=== PATIENT | female | born 1985 | race Caucasian/White ===

== ENCOUNTER → 2016-10-05 13:16 | Emergency (ER) | payer MEDICAID | END | disposition left against medical advice (07) | LOC: D.ER 13:16 | DX: Z02.9 Encounter for administrative examinations, unspecified (principal) ==

== ENCOUNTER 2017-08-30 19:45 | Emergency (ER) | payer MEDICARE ==
[2017-08-30 20:19] LABS: APPEARANCE HAZY (CLEAR); BILIRUBIN NEGATIVE (NEGATIVE); COLOR YELLOW (YELLOW); GLUCOSE NEGATIVE (NEGATIVE); KETONE NEGATIVE (NEGATIVE); NITRITE NEGATIVE (NEGATIVE); PROTEIN NEGATIVE (NEGATIVE); SPECIFIC GRAVITY 1.015 (1.005-1.020); UROBILINOGEN NORMAL (NORMAL)
[2017-08-30 20:22] LABS: BACTERIA MODERATE /hpf (NONE SEEN); EPITHELIAL CELLS 0-5 /hpf (0-5); RED CELLS - URINE 0-5 /hpf (0-5)
[2017-08-30 20:23] LABS: AMORPHOUS SEDIMENT >1+ /lpf (NONE SEEN)
[2017-08-30 20:34] LABS: BASOPHILS 0.2 % (0-2); EOSINOPHILS 1.6 % (0-7); IMMATURE GRANULOCYTES 0.9 % (0-5); LYMPHOCYTES 37.5 % (15-50); MCH 29.8 pg (26.0-34.0); MCHC 33.3 g/dL (31.0-37.0); MCV 89.4 fL (80.0-100.0); MEAN PLATELET VOLUME 11.3 fL (7.4-10.4); MONOCYTES 6.9 % (2-11); NEUTROPHILS 52.9 % (40-80); RDW 12.2 % (11.5-14.5); WBC 8.9 10x3/uL (4.8-10.8)
[2017-08-30 20:35] LABS: PLATELET COUNT 161 10x3/uL (130-400)
[2017-08-30 20:55] LABS: HCG SERUM NEGATIVE (NEGATIVE)
[2017-08-30 21:00] LABS: ALBUMIN 4.2 g/dL (3.4-5.0); ALKALINE PHOSPHATASE 69 U/L (46-116); ALT (SGPT) 22 U/L (10-68); AMYLASE - SERUM 21 U/L (25-115); BILIRUBIN - TOTAL 0.15 mg/dL (0.2-1.3); CALC OSMOLALITY 280 mosm/kg (275-300); CARBON DIOXIDE 32.3 mmol/L (21.0-32.0); CHLORIDE - SERUM 102 mmol/L (98-107); CREATININE - SERUM 0.8 mg/dL (0.6-1.3); GLUCOSE 89 mg/dL (74-106); LIPASE 135 U/L (73-393); POTASSIUM - SERUM 3.3 mmol/L (3.5-5.1); PROTEIN - SERUM 8.2 g/dL (6.4-8.2); SODIUM 142 mmol/L (136-145); UREA NITROGEN 10 mg/dL (7-18); eGFR NON AFRICAN AMERICAN 87 mL/min (90-120)
[2017-10-21] MEDS ORDERED: VALIUM5 MG PO (09:43)
[2017-10-21] MEDS ORDERED: ULTRAM50 MG PO (09:44)
[2017-10-21] MEDS ORDERED: BACTRIM 400-801 TAB PO (09:45)
[2017-10-21] MEDS ORDERED: INDERAL10 MG PO (09:46)
[2017-10-21] MEDS ORDERED: LAMICTAL150 MG PO (09:46)
[2017-10-21] MEDS ORDERED: LINZESS290 MCG PO (09:47)
[2017-10-21] MEDS ORDERED: HCTZ25 MG PO (09:47)
[2017-10-21] MEDS ORDERED: TRANXENE T-TAB7.5 MG PO (09:49)
[2017-10-27 08:55] VITALS: BMI 33.8
== END 2017-08-30 22:46 | disposition home or self-care (01) ==
LOC: D.ER 19:45
PROVIDERS: Emergency Medicine; Physician Assistant
DX: R10.13 Epigastric pain (principal); R11.2 Nausea with vomiting, unspecified; Z98.890 Other specified postprocedural states; E87.6 Hypokalemia; K59.00 Constipation, unspecified; Z95.0 Presence of cardiac pacemaker; J44.9 Chronic obstructive pulmonary disease, unspecified

== ENCOUNTER 2017-09-10 11:03 | Emergency (ER) | payer MEDICARE ==
[2017-10-21] MEDS ORDERED: VALIUM5 MG PO (09:43)
[2017-10-21] MEDS ORDERED: ULTRAM50 MG PO (09:44)
[2017-10-21] MEDS ORDERED: BACTRIM 400-801 TAB PO (09:45)
[2017-10-21] MEDS ORDERED: LAMICTAL150 MG PO (09:46)
[2017-10-21] MEDS ORDERED: INDERAL10 MG PO (09:46)
[2017-10-21] MEDS ORDERED: LINZESS290 MCG PO (09:47)
[2017-10-21] MEDS ORDERED: HCTZ25 MG PO (09:47)
[2017-10-21] MEDS ORDERED: TRANXENE T-TAB7.5 MG PO (09:49)
[2017-10-27 08:55] VITALS: BMI 33.8
== END 2017-09-10 12:58 | disposition home or self-care (01) ==
LOC: D.ER 11:03
DX: L53.8 Other specified erythematous conditions (principal); Z95.0 Presence of cardiac pacemaker

== ENCOUNTER 2017-10-12 10:24 | Emergency (ER) | payer MEDICARE ==
[2017-10-12 11:30] LABS: BASOPHILS 0.3 % (0-2); EOSINOPHILS 1.1 % (0-7); HEMATOCRIT 37.4 % (36.0-48.0); HEMOGLOBIN 12.7 g/dL (12-16); IMMATURE GRANULOCYTES 0.2 % (0-5); LYMPHOCYTES 42.6 % (15-50); MCH 29.8 pg (26.0-34.0); MCV 87.8 fL (80.0-100.0); MEAN PLATELET VOLUME 9.4 fL (7.4-10.4); MONOCYTES 6.4 % (2-11); NEUTROPHILS 49.4 % (40-80); RBC 4.26 10x6/uL (4.00-5.40); RDW 12.7 % (11.5-14.5); WBC 6.2 10x3/uL (4.8-10.8)
[2017-10-12 11:31] LABS: PLATELET COUNT 215 10x3/uL (130-400)
[2017-10-12 11:38] LABS: APPEARANCE CLEAR (CLEAR); COLOR YELLOW (YELLOW); SPECIFIC GRAVITY 1.005 (1.005-1.020)
[2017-10-12 11:39] LABS: BILIRUBIN NEGATIVE (NEGATIVE); GLUCOSE NEGATIVE (NEGATIVE); KETONE NEGATIVE (NEGATIVE); NITRITE NEGATIVE (NEGATIVE); PROTEIN NEGATIVE (NEGATIVE); UROBILINOGEN NORMAL (NORMAL)
[2017-10-12 11:41] LABS: BACTERIA FEW /hpf (NONE SEEN); EPITHELIAL CELLS 0-5 /hpf (0-5); RED CELLS - URINE 0-5 /hpf (0-5); WHITE CELLS - URINE 0-5 /hpf (0-5)
[2017-10-12 11:53] LABS: ALBUMIN 3.9 g/dL (3.4-5.0); ALKALINE PHOSPHATASE 57 U/L (46-116); ALT (SGPT) 20 U/L (10-68); CALC OSMOLALITY 275 mosm/kg (275-300); CALCIUM 9.9 mg/dL (8.5-10.1); CARBON DIOXIDE 26.6 mmol/L (21.0-32.0); CHLORIDE - SERUM 104 mmol/L (98-107); CREATININE - SERUM 0.8 mg/dL (0.6-1.3); GLUCOSE 101 mg/dL (74-106); POTASSIUM - SERUM 3.7 mmol/L (3.5-5.1); SODIUM 138 mmol/L (136-145); UREA NITROGEN 13 mg/dL (7-18); eGFR NON AFRICAN AMERICAN 87 mL/min (90-120)
[2017-10-21] MEDS ORDERED: VALIUM5 MG PO (09:43)
[2017-10-21] MEDS ORDERED: ULTRAM50 MG PO (09:44)
[2017-10-21] MEDS ORDERED: BACTRIM 400-801 TAB PO (09:45)
[2017-10-21] MEDS ORDERED: INDERAL10 MG PO (09:46)
[2017-10-21] MEDS ORDERED: LAMICTAL150 MG PO (09:46)
[2017-10-21] MEDS ORDERED: HCTZ25 MG PO (09:47)
[2017-10-21] MEDS ORDERED: LINZESS290 MCG PO (09:47)
[2017-10-21] MEDS ORDERED: TRANXENE T-TAB7.5 MG PO (09:49)
[2017-10-27 08:55] VITALS: BMI 33.8
== END 2017-10-12 13:00 | disposition home or self-care (01) ==
LOC: D.ER 10:24
PROVIDERS: Family Medicine
DX: N39.0 Urinary tract infection, site not specified (principal); Z95.0 Presence of cardiac pacemaker

== ENCOUNTER 2017-10-22 08:05 | Day surgery (SDC) | payer MEDICARE ==
[2017-10-21 10:40] LABS: HEMATOCRIT 38.2 % (36.0-48.0); HEMOGLOBIN 12.9 g/dL (12-16); MCH 29.9 pg (26.0-34.0); MCHC 33.8 g/dL (31.0-37.0); MCV 88.4 fL (80.0-100.0); MEAN PLATELET VOLUME 9.4 fL (7.4-10.4); RBC 4.32 10x6/uL (4.00-5.40); RDW 12.4 % (11.5-14.5); WBC 6.4 10x3/uL (4.8-10.8)
[2017-10-21 11:02] LABS: CALC OSMOLALITY 275 mosm/kg (275-300); CARBON DIOXIDE 30.5 mmol/L (21.0-32.0); CHLORIDE - SERUM 104 mmol/L (98-107); CREATININE - SERUM 0.8 mg/dL (0.6-1.3); GLUCOSE 97 mg/dL (74-106); POTASSIUM - SERUM 3.5 mmol/L (3.5-5.1); SODIUM 139 mmol/L (136-145); UREA NITROGEN 8 mg/dL (7-18); eGFR NON AFRICAN AMERICAN 87 mL/min (90-120)
[~2017-10-22] VITALS: Ht 167.6 cm; Wt 88.5 kg
--- NOTE | ~2017-10-22 | OP ---
PATIENT NAME: MIRYAM TREVINO MEDICAL RECORD: [id number] :81 LOCATION:D.OPS ADMISSION DATE: SURGEON: ARIC PERKINS MD DATE OF OPERATION: 10/22/2017 PREOPERATIVE DIAGNOSIS: Esophageal nodule near the EG junction of uncertain etiology. POSTOPERATIVE DIAGNOSIS: Esophageal nodule near the EG junction of uncertain etiology. PROCEDURE: Esophagogastroduodenoscopy with endoscopic mucosal resection of a submucosal lesion at 37 cm. SURGEON: Aric Perkins MD DOCTOR OF NURSING PRACTICE: None. BLOOD LOSS: Minimal. ANESTHESIA: General. COMPLICATIONS: None. The risks, possible complications and alternatives to procedure were explained to the patient. She elects to proceed. The discussion specifically included, but was not limited to, bleeding requiring emergency reoperation, infection, intestinal or other GI tract injury. DESCRIPTION OF PROCEDURE: The patient was conveyed to the operating room electively on 10/22/2017. General anesthesia was induced by the anesthesia staff. A bite block was inserted. A gastroscope was inserted into the mouth. It was advanced easily into the hypopharynx. The esophagus was easily intubated as were the stomach and duodenum. Upon withdrawal, retroflexed and angulus views were obtained. I then withdrew into the distal esophagus. I identified the lesion. I advanced a sclerotherapy needle. Underneath the lesion, I injected an epinephrine solution. This was to get a lift of the lesion away from the esophageal wall. I then removed the sclerotherapy needle as well as the gastroscope. The gastroscope was loaded with a banding device. I advanced the gastroscope. I identified the lesion. I sucked it up into the banding reservoir. I deployed 1 band. It appeared to have fit nicely around the base of this lesion. The gastroscope was removed. The banding device was removed as well. I re-advanced the gastroscope. I advanced an endoscopic snare. I then placed a snare around the base of the band. Utilizing the coag setting and then the cut setting, I was able to transect the mass at its base. The snare was removed. An endoscopic retrieval net was advanced and I was able to identify the specimen in the fundus of the stomach and it was removed in its entirety. I then readvanced the gastroscope. I noted no residual mass. There was some bleeding around the biopsy site and this was controlled with the argon plasma education department chair utilizing the esophageal setting in the forced mode. Again, no evidence of full thickness injury to the esophagus. The endoscope was OPERATIVE REPORT [id number] MIRYAM TREVINO then withdrawn under direct vision. I will see the patient in my office in 2-3 weeks. TRANSINT:[id number] Voice Confirmation ID: [id number] DOCUMENT ID: [id number] ARIC PERKINS MD at 1507 CC: VINCENT LEUNG MD and BISHOP GILES [id number] DICTATION DATE: 10/22/17 1156 DRUM DYEING MACHINE OPERATOR: 10/22/[address] [facility] [place] 10/22/17 [facility] [address] [place] [address]
[~2017-10-22 08:05] MED LIST: BACTRIM 400-801 TAB PO; HCTZ25 MG PO; INDERAL10 MG PO; LAMICTAL150 MG PO; LINZESS290 MCG PO; TRANXENE T-TAB7.5 MG PO; ULTRAM50 MG PO; VALIUM5 MG PO
[2017-10-22 08:56] VITALS: BP 118/71; Ht 167.6 cm; Wt 88.5 kg
== END 2017-10-22 15:05 | disposition home or self-care (01) ==
LOC: D.OPS 08:05 → D.PAN 13:00 → D.OPS 15:05
PROVIDERS: Anesthesiology
DX: K22.8 Other specified diseases of esophagus (principal); F41.9 Anxiety disorder, unspecified; J45.909 Unspecified asthma, uncomplicated; I25.2 Old myocardial infarction; Z86.010 Personal history of colon polyps; Z95.0 Presence of cardiac pacemaker; K76.9 Liver disease, unspecified; I10 Essential (primary) hypertension; E78.5 Hyperlipidemia, unspecified; Z01.812 Encounter for preprocedural laboratory examination

== ENCOUNTER 2017-10-24 18:48 | Inpatient (IN) | payer MEDICARE ==
[~2017-10-24] VITALS: Ht 167.6 cm; Wt 89.7 kg
--- NOTE | ~2017-10-24 | CN ---
PATIENT NAME:MIRYAM TREVINO MEDICAL RECORD: [id number] : 81 LOCATION:D.[facility] [place] ADMIT DATE: 10/24/17 ACCOUNT: [id number] CONSULTING PHYSICIAN: TRACY GAITAN MD REFERRING PHYSICIAN: ARIC PERKINS MD DATE OF CONSULTATION: 10/27/2017 HISTORY OF PRESENT ILLNESS: A 32-year-old female with history of cardiac arrhythmia status post permanent pacemaker placement, admitted with a questionable esophageal perforation, chest pain. She has had increasing PVCs during current illness. She was unable to take anything p.o., typically takes up to 5 Inderal every day. We are asked to see her concerning her cardiovascular status. PAST MEDICAL HISTORY: Otherwise includes: 1. History of cardiac arrhythmias. 2. Gastroesophageal reflux disease. MEDICATIONS: Include propranolol. ALLERGIES: PENICILLIN. SOCIAL HISTORY: Nonsmoker, nondrinker. Easily takes care of all ADLs. No set exercise program. REVIEW OF SYSTEMS: The patient reports easy bruising but reports no swollen glands. The patient reports no fever, no night sweats, no significant weight gain, no significant weight loss. No significant exercise tolerance. The patient reports no dry eyes, no irritation, no vision change. Patient reports no difficulty hearing and no ear pain. Patient reports no frequent nose bleeds or nose and sinus problems. Patient reports on arm pain on exertion. No shortness of breath while lying down. No history of heart murmur. Patient reports no cough, no wheezing or coughing up blood. Patient reports no abdominal pain, no vomiting. Normal appetite. No diarrhea and not vomiting blood. No nausea and no constipation. Patient reports no incontinence. No difficulty urinating. No hematuria. No increased frequency. Patient reports no muscle aches. No weakness, no arthralgias, no back pain. No swelling of the extremities. Patient reports no abnormal mole, no jaundice, no rashes. Reports no loss of consciousness. No weakness and no numbness. No seizures, dizziness, or headaches. The patient reports no depression, no sleep disturbance, feeling safe in a relationship and no alcohol abuse. Patient reports on fatigue. Reports no runny nose or sinus pressure. No itching, no hives, and no frequent sneezing. PHYSICAL EXAMINATION: VITAL SIGNS: Blood pressure 110/63, pulse 100 and regular. HEENT: Normocephalic, atraumatic. NECK: No JVD or bruit. HEART: Regular. LUNGS: Coreas clear. ABDOMEN: Soft, nontender. EXTREMITIES: Pulses 2+. There is no edema. IMPRESSION: Increased PVCs, suspect secondary to withdrawal of Inderal, increase catacholmine drive from current illness. We will replace with IV CONSULT REPORT [id number] MIRYAM TREVINO metoprolol. When taking p.o., would simply restart IV Inderal. TRANSINT:[id number] Voice Confirmation ID: [id number] DOCUMENT ID: [id number] TRACY GAITAN MD at 1359 CC: [id number] DICTATION DATE: 10/27/17 1138 OWNER OPERATOR: 10/27/17 1148 [facility] [place] 10/28/17 [id number] [place] [address]
--- NOTE | ~2017-10-24 | EC ---
PATIENT:MIRYAM TREVINO DATE OF SERVICE: 10/24/17 SEX: F MEDICAL RECORD: [id number] DATE OF : 81 LOCATION:D.[facility] [place] AGE OF PATIENT: 32 ADMISSION DATE: 10/24/17 REFERRING PHYSICIAN: INTERPRETING PHYSICIAN: ONEL CROOK MD ECHOCARDIOGRAM REPORT ECHO CHARGES 4 ECHO COMPLETE Date: 10/28 CLINICAL DIAGNOSIS: PVC'S HX OF PACER ECHOCARDIOGRAPHIC MEASUREMENTS (adult normal given) AC root (d.<3.7cm) 3.4 cm LV Septum d (<1.2 cm> 1.0 cm Valve Excursion 1.4 cm LV Septum (systole) 1.3 cm Left Atria (s.<4.0cm> 3.6 cm LVPW d(<1.2cm) 1.3 cm RV (d.<2.3cm) 4.3 cm LVPW (sytole) 1.4 cm LV diastole(<5.6CM) 4.8 cm MV E-F(>70mm/sec) cm LV systole 3.0 cm LVOT Diameter 1.7 cm MV exc.(>10mm) 1.8 cm Est.ejection fraction (50-75%) % DOPPLER: LVIT cm/sec A 50.0 cm/sec E 69.0 cm/sec LA cm/sec RVSP 19 mmHg LVOT 108 cm/sec AOP1/2T m/s Asc. Ao 137 cm/sec RVOT 100 cm/sec RA cm/sec PA 128 cm/sec AV Gradient Peak 7.51 mmHg AV Mean 3.86 mmHg AV Area 1.7 cm MV Gradient Peak 4.67 mmHg MV Mean 1.19 mmHg MV Area cm COMMENTS: Gunnery/Ordnance Officer: 2 CLEM STEELE Nuclear Operations Specialist: Madison Crook TAPE# PACS Pericardial Effusion N DATE OF SERVICE: PROCEDURE: Transthoracic echocardiogram. FINDINGS: 1. Left ventricle is normal size, normal shape, and normal function. Ejection fraction 60%. Inflow characteristics are normal. 2. The left atrium is normal. 3. The aortic valve is normal. 4. The mitral valve is normal. ECHOCARDIOGRAM REPORT [id number] MIRYAM TREVINO 5. The tricuspid valve is normal. 6. The right-sided structures are mildly enlarged. There is a pacer wire artifact seen. 7. The pulmonic valve is normal. CONCLUSIONS: This is a normal echocardiogram for the patient's stated age. TRANSINT:[id number] Voice Confirmation ID: [id number] DOCUMENT ID: [id number] ONEL CROOK MD at 1057 CC: [id number] DICTATION DATE: 10/29/17918 FINANCIAL OPERATIONS CONSULTANT: 10/29/17 1254 [facility] [place] 10/28/17 [facility] [address] [place] [address]
[2017-10-24 20:16] LABS: APPEARANCE CLEAR (CLEAR); COLOR YELLOW (YELLOW)
[2017-10-24 20:17] LABS: BILIRUBIN NEGATIVE (NEGATIVE); GLUCOSE NEGATIVE (NEGATIVE); KETONE NEGATIVE (NEGATIVE); NITRITE NEGATIVE (NEGATIVE); PROTEIN NEGATIVE (NEGATIVE); UROBILINOGEN NORMAL (NORMAL)
[2017-10-24 20:18] LABS: BASOPHILS 0.1 % (0-2); EOSINOPHILS 0.9 % (0-7); HEMOGLOBIN 13.1 g/dL (12-16); IMMATURE GRANULOCYTES 0.1 % (0-5); LYMPHOCYTES 45.4 % (15-50); MCH 29.7 pg (26.0-34.0); MCHC 33.6 g/dL (31.0-37.0); MCV 88.4 fL (80.0-100.0); MEAN PLATELET VOLUME 9.5 fL (7.4-10.4); MONOCYTES 7.1 % (2-11); NEUTROPHILS 46.4 % (40-80); PLATELET COUNT 250 10x3/uL (130-400); RBC 4.41 10x6/uL (4.00-5.40); RDW 12.2 % (11.5-14.5); WBC 8.4 10x3/uL (4.8-10.8)
[2017-10-24 20:29] LABS: HCG SERUM NEGATIVE (NEGATIVE)
[2017-10-24 20:31] LABS: ALKALINE PHOSPHATASE 66 U/L (46-116); ALT (SGPT) 17 U/L (10-68); AMYLASE - SERUM 15 U/L (25-115); CALC OSMOLALITY 280 mosm/kg (275-300); CALCIUM 9.8 mg/dL (8.5-10.1); CHLORIDE - SERUM 102 mmol/L (98-107); CREATININE - SERUM 0.8 mg/dL (0.6-1.3); GLUCOSE 92 mg/dL (74-106); LIPASE 97 U/L (73-393); POTASSIUM - SERUM 3.1 mmol/L (3.5-5.1); PROTEIN - SERUM 8.4 g/dL (6.4-8.2); SODIUM 142 mmol/L (136-145); UREA NITROGEN 8 mg/dL (7-18); eGFR NON AFRICAN AMERICAN 87 mL/min (90-120)
[2017-10-24 20:34] LABS: HELICOBACTER PYLORI IGG NEGATIVE (NEGATIVE)
[2017-10-24 22:23] LABS: INR 0.94 (0.85-1.17); PROTIME 12.2 SECONDS (11.6-15.0)
[2017-10-25] VITALS (22 sets, daily range): BP systolic 86–119; BP diastolic 53–77; BMI 33.8
[2017-10-25 04:46] LABS: BASOPHILS 0.3 % (0-2); EOSINOPHILS 1.3 % (0-7); HEMATOCRIT 32.8 % (36.0-48.0); HEMOGLOBIN 10.9 g/dL (12-16); LYMPHOCYTES 47.3 % (15-50); MCH 29.8 pg (26.0-34.0); MCHC 33.2 g/dL (31.0-37.0); MCV 89.6 fL (80.0-100.0); MEAN PLATELET VOLUME 9.2 fL (7.4-10.4); MONOCYTES 6.4 % (2-11); NEUTROPHILS 44.7 % (40-80); PLATELET COUNT 211 10x3/uL (130-400); RBC 3.66 10x6/uL (4.00-5.40); RDW 12.5 % (11.5-14.5); WBC 6.7 10x3/uL (4.8-10.8)
[2017-10-25 05:08] LABS: CALC OSMOLALITY 278 mosm/kg (275-300); CALCIUM 8.5 mg/dL (8.5-10.1); CHLORIDE - SERUM 106 mmol/L (98-107); CREATININE - SERUM 0.7 mg/dL (0.6-1.3); GLUCOSE 97 mg/dL (74-106); SODIUM 141 mmol/L (136-145); UREA NITROGEN 7 mg/dL (7-18); eGFR NON AFRICAN AMERICAN > 90 mL/min (90-120)
[2017-10-25 05:11] LABS: POTASSIUM - SERUM 4.1 mmol/L (3.5-5.1)
[2017-10-26] VITALS (24 sets, daily range): BP systolic 95–137; BP diastolic 66–87
[2017-10-26 04:09] LABS: BASOPHILS 0.2 % (0-2); EOSINOPHILS 0.5 % (0-7); HEMATOCRIT 36.9 % (36.0-48.0); HEMOGLOBIN 12.1 g/dL (12-16); IMMATURE GRANULOCYTES 0.5 % (0-5); MCHC 32.8 g/dL (31.0-37.0); MCV 91.6 fL (80.0-100.0); MEAN PLATELET VOLUME 9.6 fL (7.4-10.4); MONOCYTES 4.5 % (2-11); NEUTROPHILS 52.3 % (40-80); PLATELET COUNT 189 10x3/uL (130-400); RBC 4.03 10x6/uL (4.00-5.40); RDW 12.5 % (11.5-14.5); WBC 6.5 10x3/uL (4.8-10.8)
[2017-10-26 04:22] LABS: CALC OSMOLALITY 278 mosm/kg (275-300); CALCIUM 8.3 mg/dL (8.5-10.1); CARBON DIOXIDE 28.6 mmol/L (21.0-32.0); CHLORIDE - SERUM 105 mmol/L (98-107); CREATININE - SERUM 0.6 mg/dL (0.6-1.3); GLUCOSE 82 mg/dL (74-106); POTASSIUM - SERUM 4.2 mmol/L (3.5-5.1); SODIUM 142 mmol/L (136-145); UREA NITROGEN 5 mg/dL (7-18); eGFR NON AFRICAN AMERICAN > 90 mL/min (90-120)
[2017-10-27] VITALS (17 sets, daily range): BP systolic 106–123; BP diastolic 63–93; Ht 167.6 cm; Wt 89.7 kg
[2017-10-27 03:26] LABS: BASOPHILS 0.2 % (0-2); EOSINOPHILS 1.3 % (0-7); HEMATOCRIT 32.7 % (36.0-48.0); HEMOGLOBIN 10.7 g/dL (12-16); IMMATURE GRANULOCYTES 0.6 % (0-5); LYMPHOCYTES 38.8 % (15-50); MCH 29.3 pg (26.0-34.0); MCHC 32.7 g/dL (31.0-37.0); MONOCYTES 4.7 % (2-11); NEUTROPHILS 54.4 % (40-80); PLATELET COUNT 173 10x3/uL (130-400); RBC 3.65 10x6/uL (4.00-5.40); RDW 12.1 % (11.5-14.5); WBC 5.4 10x3/uL (4.8-10.8)
[2017-10-27 03:28] LABS: MCV 89.6 fL (80.0-100.0)
[2017-10-27 03:40] LABS: CARBON DIOXIDE 25.5 mmol/L (21.0-32.0); CHLORIDE - SERUM 105 mmol/L (98-107); CREATININE - SERUM 0.6 mg/dL (0.6-1.3); SODIUM 140 mmol/L (136-145); eGFR NON AFRICAN AMERICAN > 90 mL/min (90-120)
[2017-10-27 03:41] LABS: CALC OSMOLALITY 273 mosm/kg (275-300); GLUCOSE 69 mg/dL (74-106); UREA NITROGEN 3 mg/dL (7-18)
[2017-10-28 00:30] VITALS: BP 97/65
[2017-10-28 04:00] VITALS: BP 105/63
[2017-10-28 06:03] LABS: BASOPHILS 0.2 % (0-2); EOSINOPHILS 1.7 % (0-7); HEMATOCRIT 33.4 % (36.0-48.0); HEMOGLOBIN 11.1 g/dL (12-16); IMMATURE GRANULOCYTES 0.4 % (0-5); LYMPHOCYTES 43.7 % (15-50); MCH 29.4 pg (26.0-34.0); MCHC 33.2 g/dL (31.0-37.0); MCV 88.6 fL (80.0-100.0); MEAN PLATELET VOLUME 9.4 fL (7.4-10.4); MONOCYTES 5.7 % (2-11); NEUTROPHILS 48.3 % (40-80); PLATELET COUNT 202 10x3/uL (130-400); RBC 3.77 10x6/uL (4.00-5.40); RDW 12.5 % (11.5-14.5); WBC 4.7 10x3/uL (4.8-10.8)
[2017-10-28 06:22] LABS: CALC OSMOLALITY 277 mosm/kg (275-300); CALCIUM 8.3 mg/dL (8.5-10.1); CARBON DIOXIDE 26.5 mmol/L (21.0-32.0); CHLORIDE - SERUM 107 mmol/L (98-107); CREATININE - SERUM 0.5 mg/dL (0.6-1.3); GLUCOSE 88 mg/dL (74-106); POTASSIUM - SERUM 3.7 mmol/L (3.5-5.1); SODIUM 142 mmol/L (136-145); eGFR NON AFRICAN AMERICAN > 90 mL/min (90-120)
[2017-10-28 06:30] LABS: UREA NITROGEN 2 mg/dL (7-18)
[2017-10-28 08:29] VITALS: BP 114/75
[2017-10-28] MEDS ORDERED: LEVAQUIN750 MG PO (10:53)
[2017-10-28] MEDS ORDERED: ZOFRAN4 MG PO (10:54)
[2017-10-28] MEDS ORDERED: HYDROCODON-ACE1 EAC7 PO (15:00)
== END 2017-10-28 16:30 | disposition home or self-care (01) | DRG 919 ==
LOC: D.ER 18:48 → D.EDHOLD 22:20 → D.ICU 22:20 → D.MS 10-27 22:42
PROVIDERS: Emergency Medicine; Family Medicine; Surgery
DX: K91.71 Accidental puncture and laceration of a digestive system organ or structure during a digestive system procedure (principal); K22.3 Perforation of esophagus; Y83.8 Other surgical procedures as the cause of abnormal reaction of the patient, or of later complication, without mention of misadventure at the time of the procedure; I10 Essential (primary) hypertension; J98.2 Interstitial emphysema; R10.13 Epigastric pain; Z95.0 Presence of cardiac pacemaker; I49.3 Ventricular premature depolarization

== ENCOUNTER 2018-08-18 19:34 | Emergency (ER) | payer MEDICARE ==
[~2018-08-18] VITALS: Ht 167.6 cm; Wt 77.3 kg
[~2018-08-18 19:34] MED LIST changes: +HYDROCODON-ACE1 EAC7 PO; +LEVAQUIN750 MG PO; +ZOFRAN4 MG PO
[2018-08-18 19:48] VITALS: Ht 167.6 cm; Wt 77.3 kg
[2018-08-18] MEDS ORDERED: KLONOPIN1 MG PO (19:50)
[2018-08-18 21:09] LABS: APPEARANCE CLEAR (CLEAR); BILIRUBIN NEGATIVE (NEGATIVE); COLOR YELLOW (YELLOW); GLUCOSE NEGATIVE (NEGATIVE); KETONE NEGATIVE (NEGATIVE); NITRITE NEGATIVE (NEGATIVE); PROTEIN NEGATIVE (NEGATIVE); SPECIFIC GRAVITY 1.015 (1.005-1.020); UROBILINOGEN NORMAL (NORMAL)
[2018-08-18 21:24] LABS: BASOPHILS 0.2 % (0-2); EOSINOPHILS 0.5 % (0-7); HEMATOCRIT 41.1 % (36.0-48.0); HEMOGLOBIN 13.8 g/dL (12-16); IMMATURE GRANULOCYTES 0.2 % (0-5); LYMPHOCYTES 24.1 % (15-50); MCH 30.1 pg (26.0-34.0); MCHC 33.6 g/dL (31.0-37.0); MCV 89.7 fL (80.0-100.0); MEAN PLATELET VOLUME 9.7 fL (7.4-10.4); MONOCYTES 4.6 % (2-11); NEUTROPHILS 70.4 % (40-80); PLATELET COUNT 237 10x3/uL (130-400); RBC 4.58 10x6/uL (4.00-5.40); RDW 12.5 % (11.5-14.5); WBC 9.5 10x3/uL (4.8-10.8)
[2018-08-18 21:46] LABS: ALBUMIN 4.2 g/dL (3.4-5.0); ALKALINE PHOSPHATASE 58 U/L (46-116); ALT (SGPT) 18 U/L (10-68); CALC OSMOLALITY 275 mosm/kg (275-300); CALCIUM 9.2 mg/dL (8.5-10.1); CARBON DIOXIDE 29.5 mmol/L (21.0-32.0); CHLORIDE - SERUM 103 mmol/L (98-107); CREATININE - SERUM 0.7 mg/dL (0.6-1.3); GLUCOSE 85 mg/dL (74-106); POTASSIUM - SERUM 3.6 mmol/L (3.5-5.1); PROTEIN - SERUM 8.4 g/dL (6.4-8.2); SODIUM 140 mmol/L (136-145); UREA NITROGEN 6 mg/dL (7-18); eGFR NON AFRICAN AMERICAN > 90 mL/min (90-120)
[2018-08-18 21:58] LABS: THYROID STIMULATING HORMONE 0.52 uIU/mL (0.36-3.74)
[2018-08-18 22:29] VITALS: BP 125/75
== END 2018-08-18 22:30 | disposition home or self-care (01) ==
LOC: D.ER 19:34
PROVIDERS: Family Medicine
DX: F41.9 Anxiety disorder, unspecified (principal); F43.20 Adjustment disorder, unspecified

== ENCOUNTER 2018-12-11 16:31 | Emergency (ER) | payer MEDICARE ==
[~2018-12-11] VITALS: Ht 167.6 cm; Wt 82.7 kg
[~2018-12-11 16:31] MED LIST changes: +KLONOPIN1 MG PO
[2018-12-11 16:56] VITALS: Ht 167.6 cm; Wt 82.7 kg
[2018-12-11] MEDS ORDERED: TALWIN NX1 TAB PO (17:19)
[2018-12-11] MEDS ORDERED: CLEOCIN HCL300 MG PO (17:19)
[2018-12-11] MEDS ORDERED: VOLTAREN75 MG PO (17:19)
[2018-12-11 18:18] VITALS: BP 127/88
== END 2018-12-11 18:18 | disposition home or self-care (01) ==
LOC: D.ER 16:31
DX: K04.7 Periapical abscess without sinus (principal); K08.89 Other specified disorders of teeth and supporting structures

== ENCOUNTER 2019-06-21 11:21 | Emergency (ER) | payer MEDICAID ==
[~2019-06-21] VITALS: Ht 167.6 cm; Wt 81.8 kg
[~2019-06-21 11:21] MED LIST changes: +CLEOCIN HCL300 MG PO; +TALWIN NX1 TAB PO; +VOLTAREN75 MG PO
[2019-06-21 11:27] VITALS: Ht 167.6 cm; Wt 81.8 kg
[2019-06-21 11:52] LABS: APPEARANCE CLEAR (CLEAR); BILIRUBIN NEGATIVE (NEGATIVE); COLOR YELLOW (YELLOW); GLUCOSE NEGATIVE (NEGATIVE); KETONE NEGATIVE (NEGATIVE); NITRITE NEGATIVE (NEGATIVE); PROTEIN NEGATIVE (NEGATIVE); UROBILINOGEN NORMAL (NORMAL)
[2019-06-21 12:07] LABS: BASOPHILS 0.1 % (0-2); EOSINOPHILS 0.5 % (0-7); HEMATOCRIT 41.7 % (36.0-48.0); HEMOGLOBIN 13.9 g/dL (12-16); IMMATURE GRANULOCYTES 0.3 % (0-5); LYMPHOCYTES 11.1 % (15-50); MCH 29.8 pg (26.0-34.0); MCHC 33.3 g/dL (31.0-37.0); MCV 89.3 fL (80.0-100.0); MEAN PLATELET VOLUME 9.4 fL (7.4-10.4); MONOCYTES 6.7 % (2-11); NEUTROPHILS 81.3 % (40-80); PLATELET COUNT 241 10x3/uL (130-400); RBC 4.67 10x6/uL (4.00-5.40); RDW 12.3 % (11.5-14.5); WBC 15.5 10x3/uL (4.8-10.8)
[2019-06-21 12:18] LABS: CALC OSMOLALITY 280 mosm/kg (275-300); CALCIUM 9.6 mg/dL (8.5-10.1); CARBON DIOXIDE 31.4 mmol/L (21.0-32.0); CHLORIDE - SERUM 103 mmol/L (98-107); CREATININE - SERUM 0.7 mg/dL (0.6-1.3); GLUCOSE 82 mg/dL (74-106); POTASSIUM - SERUM 3.5 mmol/L (3.5-5.1); SODIUM 142 mmol/L (136-145); UREA NITROGEN 9 mg/dL (7-18); eGFR NON AFRICAN AMERICAN > 90 mL/min (90-120)
[2019-06-21 12:27] LABS: ALBUMIN 4.3 g/dL (3.4-5.0); ALKALINE PHOSPHATASE 53 U/L (46-116); ALT (SGPT) 23 U/L (10-68); AMYLASE - SERUM 20 U/L (25-115); BILIRUBIN - TOTAL 0.46 mg/dL (0.2-1.3); LIPASE 110 U/L (73-393); PROTEIN - SERUM 8.6 g/dL (6.4-8.2)
[2019-06-21 12:30] LABS: TROPONIN-I < 0.017 ng/mL (0.000-0.060)
[2019-06-21] MEDS ORDERED: COLACE100 MG PO (13:19)
[2019-06-21] MEDS ORDERED: ZOFRAN ODT4 MG/UDTAB PO (13:19)
[2019-06-21 13:56] VITALS: BP 118/76
== END 2019-06-21 14:00 | disposition home or self-care (01) ==
LOC: D.ER 11:21
PROVIDERS: Family Medicine
DX: R10.9 Unspecified abdominal pain (principal); K59.00 Constipation, unspecified; D72.829 Elevated white blood cell count, unspecified; R11.2 Nausea with vomiting, unspecified; I10 Essential (primary) hypertension; Z95.0 Presence of cardiac pacemaker; J44.9 Chronic obstructive pulmonary disease, unspecified

== ENCOUNTER 2019-10-18 10:36 | Emergency (ER) | payer MEDICARE ==
[~2019-10-18] VITALS: Ht 167.6 cm; Wt 84.1 kg
[~2019-10-18 10:36] MED LIST changes: +COLACE100 MG PO; +ZOFRAN ODT4 MG/UDTAB PO
[2019-10-18 10:39] VITALS: Ht 167.6 cm; Wt 84.1 kg
[2019-10-18 11:08] LABS: HEMATOCRIT 41.8 % (36.0-48.0); HEMOGLOBIN 13.8 g/dL (12-16); MCH 29.1 pg (26.0-34.0); MCV 88.2 fL (80.0-100.0); NEUTROPHILS 63.2 % (40-80); PLATELET COUNT 224 10x3/uL (130-400); RBC 4.74 10x6/uL (4.00-5.40); RDW 12.5 % (11.5-14.5); WBC 6.8 10x3/uL (4.8-10.8)
[2019-10-18 11:26] LABS: ALBUMIN 3.8 g/dL (3.4-5.0); ALKALINE PHOSPHATASE 54 U/L (30-120); ALT (SGPT) 14 U/L (10-68); AMYLASE - SERUM 15 U/L (25-115); BILIRUBIN - TOTAL 0.36 mg/dL (0.2-1.3); CALC OSMOLALITY 273 mosm/kg (275-300); CARBON DIOXIDE 22.5 mmol/L (21.0-32.0); CHLORIDE - SERUM 106 mmol/L (98-107); CREATININE - SERUM 0.7 mg/dL (0.6-1.3); GLUCOSE 89 mg/dL (74-106); LIPASE 101 U/L (73-393); POTASSIUM - SERUM 3.5 mmol/L (3.5-5.1); PROTEIN - SERUM 8.2 g/dL (6.4-8.2); SODIUM 138 mmol/L (136-145); TROPONIN-I < 0.017 ng/mL (0.000-0.060); UREA NITROGEN 10 mg/dL (7-18); eGFR NON AFRICAN AMERICAN > 90 mL/min (90-120)
[2019-10-18 11:32] LABS: BACTERIA MANY /hpf (NEGATIVE); BILIRUBIN NEGATIVE (NEGATIVE); GLUCOSE NEGATIVE (NEGATIVE); KETONE NEGATIVE (NEGATIVE); NITRITE POSITIVE (NEGATIVE); RED CELLS - URINE 0-5 /hpf (0-5); SPECIFIC GRAVITY 1.025 (1.005-1.020); UROBILINOGEN NORMAL (NORMAL)
[2019-10-18] MEDS ORDERED: MACROBID100 MG PO (13:15)
[2019-10-18] MEDS ORDERED: MIRALAX17 GM PO (13:15)
[2019-10-18 13:37] VITALS: BP 112/76
== END 2019-10-18 13:38 | disposition home or self-care (01) ==
LOC: D.ER 10:36
PROVIDERS: Family Medicine
DX: N39.0 Urinary tract infection, site not specified (principal); K59.00 Constipation, unspecified; R55 Syncope and collapse; Z95.0 Presence of cardiac pacemaker; R11.2 Nausea with vomiting, unspecified; M32.9 Systemic lupus erythematosus, unspecified